=== PATIENT | male | born 1990 | race American Indian/Alaskan Native ===

== ENCOUNTER 2017-10-28 19:40 | Emergency (ER) | payer SELFPAY ==
[2017-10-28] MEDS ORDERED: NACL 0.9% 1,000 ML IR ONE (23:23)
[2017-10-28] MEDS ORDERED: XYLOCAINE 1%/ EPI 1:100,000 INFILTRATI ONE (23:25)
--- NOTE | 2017-10-29 00:22 | XRay Report ---
FINAL REPORT PROCEDURE: Two-view right hand series TECHNIQUE: RIGHT hip radiographs, AP and lateral views. HISTORY: possible fx of rt hand COMPARISON: No prior studies are available for comparison. FINDINGS: Soft tissue swelling seen over the distal end of the metacarpals. No acute fracture or dislocation is visualized. No radiopaque foreign bodies are seen. Ulna positive variant present, congenital variant. IMPRESSION: Soft tissue swelling. No evidence of fracture or dislocation. Ulna positive variant..
[2017-10-29] MEDS ORDERED: NACL 0.9% IR ONE (01:48)
[2017-10-29] MEDS ORDERED: BOOSTRIX IM ONE (01:48)
[2017-10-29] MEDS ORDERED: TRIPLE ANTIBIOTIC TP ONE (01:48)
--- NOTE | 2017-10-29 01:52 | Emergency Department Report ---
- General Chief Complaint: Wound/Laceration Stated Complaint: RT HAND LAC Time Seen by Provider: 10/28/17 22:39 Source: patient Mode of arrival: Ambulatory Limitations: No Limitations - History of Present Illness Initial Comments: Patient was moving a full length mirror when it slipped and cut him on his right hand. He does not think that the glass broke. In the last tetanus. Right-hand dominant. Able to move and feel in his right second finger. - Related Data Previous Rx's Medication Instructions Recorded Last Taken Type traMADol [Ultram 50 MG tab] 50 mg PO Q6HR PRN #3 tablet 10/29/17 Unknown Rx Allergies Allergy/AdvReac Type Severity Reaction Status Date / Time No Known Allergies Allergy Unverified 10/28/17 20:43 ED Review of Systems ROS: Stated complaint: RT HAND LAC Other details as noted in HPI Comment: All other systems reviewed and negative Skin: other (laceration) ED Past Medical Hx - Past Medical History Previous Medical History?: No - Surgical History Past Surgical History?: No - Social History Smoking Status: Never Smoker Substance Use Type: Marijuana - Medications Home Medications: Home Medications Medication Instructions Recorded Confirmed Last Taken Type traMADol [Ultram 50 MG tab] 50 mg PO Q6HR PRN #3 tablet 10/29/17 Unknown Rx ED Physical Exam - General Limitations: No Limitations General appearance: alert, in no apparent distress - Extremities Exam Extremities exam: Present: other (right hand is neurovascularly intact. 4 cm linear laceration seen at their base of the second finger along the volar aspect. Flexion/extension of the second finger is intact, as well as sensation and cap refill. No exposed bone or ligaments seen.) ED Course Vital Signs 10/28/17 19:51 Temperature 98.8 F Pulse Rate 78 Respiratory 20 Rate Blood Pressure 140/94 O2 Sat by Pulse 98 Oximetry - Laceration /Wound Repair Right Palm Finger Wound Location: upper extremity Wound Length (cm): 4 Wound's Depth, Shape: linear Wound Explored: no foreign body removed Irrigated w/ Saline (ccs): 1,000 Anesthesia: Lidocaine w/ Epi Wound Debrided: minimal Wound Repaired With: sutures Suture Size/Type: 4:0, nylon Number of Sutures: 4 Layer Closure?: No Sterile Dressing Applied?: No ED Medical Decision Making - Radiology Data Radiology results: report reviewed, image reviewed - Medical Decision Making 27-year-old male with no significant past medical history presents to the ER with hand laceration. Patient's well-appearing. Vital signs are stable. X- ray imaging showed no evidence of retained foreign body. After being anesthetized, explored the wound. I did not see any exposed bone or tendon. Wound was copiously cleaned and closed. See procedure note for details. Patient was placed in a finger splint. Sutures will be removed in one week. Antibiotic ointment was applied to the wound. Tetanus is updated. Clear for discharge. - Differential Diagnosis laceration, retained fob, tendon injury, contusion Critical care attestation.: If time is entered above; I have spent that time in minutes in the direct care of this critically ill patient, excluding procedure time. ED Disposition Clinical Impression: Laceration Disposition: DC-01 TO HOME OR SELFCARE Is pt being admited?: No Condition: Stable Instructions: Suture Care (ED), Finger Laceration (ED) Additional Instructions: Have your sutures removed in one week. Make sure that you keep your wound clean. No swimming or hot tubs until the sutures have been removed. Prescriptions: traMADol [Ultram 50 MG tab] 50 mg PO Q6HR PRN #3 tablet PRN Reason: Pain Referrals: PRIMARY CARE, [Primary Care Provider] - 3-5 Days
[2017-10-29] MEDS ORDERED: XYLOCAINE 1%/ EPI 1:100,000 INFILTRATI NR (02:00)
[2017-10-29 02:38] VITALS: BP 152/87
== END 2017-10-29 02:40 | disposition home or self-care (01) ==
LOC: ED 19:40
DX: S61.411A Laceration without foreign body of right hand, initial encounter (principal); F12.10 Cannabis abuse, uncomplicated; W25.XXXA Contact with sharp glass, initial encounter; Y93.89 Activity, other specified; Y92.89 Other specified places as the place of occurrence of the external cause; Y99.8 Other external cause status
CPT/HCPCS: 90471; 90715; 99283; A6250

== ENCOUNTER 2017-11-04 09:59 | Emergency (ER) | payer SELFPAY ==
--- NOTE | 2017-11-04 13:34 | Emergency Department Report ---
Chief Complaint: Laceration/Recheck/Suture Stated Complaint: WOUND CHECK Time Seen by Provider: 11/04/17 13:28 - HPI History of Present Illness: Patient is a 27-year-old -[place] male who is has stitches in for 6 days on the cut on the palmar aspect of the MCP joint of his second digit. Patient here to see if the sutures can be removed. Patient has had no redness increased pain or purulent drainage from the wound - ROS Review of Systems: All other systems are reviewed and are negative - Exam Vital Signs: Vital Signs 11/04/17 10:22 Temperature 98.6 F Pulse Rate 88 Respiratory 18 Rate Blood Pressure 135/90 O2 Sat by Pulse 99 Oximetry Physical Exam: Focused physical exam the patient's wound is healing there is a small amount of potential wound dehiscence that would believe would occur if the middle stitch would be removed at this time. Wound edges are not completely lined up any hearing at this time. MSE screening note: Focused history and physical exam performed. Due to findings the following was ordered: ED Medical Decision Making - Medical Decision Making She has been instructed to wait additional 3 days before suture removal. ED Disposition for MSE Clinical Impression: Laceration Disposition: Z-07 MED SCREENING EXAM-LEFT Is pt being admited?: No Does the pt Need Aspirin: No Condition: Stable Additional Instructions: Please wait until 10 days after the sutures are placed to try to have them removed Referrals: PRIMARY CARE, [Primary Care Provider] - 3-5 Days
[2017-11-04 14:13] VITALS: BP 121/69
== END 2017-11-04 14:15 | disposition left against medical advice (07) ==
LOC: ED 09:59
DX: S61.218D Laceration without foreign body of other finger without damage to nail, subsequent encounter (principal); W45.8XXD Other foreign body or object entering through skin, subsequent encounter; Z53.21 Procedure and treatment not carried out due to patient leaving prior to being seen by health care provider